=== PATIENT | female | born 1985 | race Caucasian/White ===

== ENCOUNTER 2021-02-10 02:17 | Emergency (ER) | payer OTHER ==
[2021-02-10] MEDS ORDERED: Bacitracin Oint 1 GM U/D Packet TOP ONE (03:01)
--- NOTE | 2021-02-10 03:07 | EDM.PDOC ---
ED HPI GENERAL MEDICAL PROBLEM - General Chief Complaint: Laceration Stated Complaint: HEAD LACERATION Time Seen by Provider: 02/10/21 02:50 Source of Information: Reports: Patient History Limitations: Reports: No Limitations - History of Present Illness INITIAL COMMENTS - FREE TEXT/NARRATIVE: Patient was trying to center a cab on a table before lowering it when she accidentally hit the lower button and the cab dropped down. Made contact with the top of her head. Has abrasion/headache. No loss of consciousness. No neuro focal neuro changes. No vomiting/nausea. No other complaints. Treatments CARETAKER RESORT: Reports: Cold Therapy Headache Pain Score (Numeric/FACES): 7 - Related Data Allergies Allergy/AdvReac Type Severity Reaction Status Date / Time adhesive tape Allergy Rash Verified 02/10/21 02:24 NSAIDS (Non-Steroidal Allergy Anaphylactic Verified 02/10/21 02:24 Anti-Inflamma Shock Home Meds: Home Meds Levothyroxine Sodium [Levothyroxine] 125 mcg PO DAILY 02/10/21 [History] Topiramate 100 mg PO BID 02/10/21 [History] Past Medical History HEENT History: Reports: Impaired Vision REFINISHER History: Reports: Musculoskeletal History: Reports: Fibromyalgia Neurological History: Reports: Migraines Psychiatric History: Reports: Anxiety, Depression, PTSD Endocrine/Metabolic History: Reports: Other (See Below) Other Endocrine/Metabolic History: Bobo's - Past Surgical History HEENT Surgical History: Reports: Adenoidectomy, Myringotomy w Tube(s), Tonsillectomy Endocrine Surgical History: Reports: None Neurological Surgical History: Reports: None Musculoskeletal Surgical History: Reports: None Social & Family History - Tobacco Use Tobacco Use Status *Q: Light Tobacco User Years of Tobacco use: 5 Packs/Tins Daily: 0.1 - Caffeine Use Caffeine Use: Reports: Coffee, Soda - Recreational Drug Use Recreational Drug Use: No ED ROS GENERAL - Review of Systems Review Of Systems: Comprehensive ROS is negative, except as noted in HPI. ED EXAM, SKIN/RASH Exam: See Below Exam Limited By: No Limitations General Appearance: Alert, WD/WN, No Apparent Distress Eye Exam: Bilateral Eye: EOMI, PERRL Ears: Normal Canal Nose: No: Nasal Deformity, Nasal Swelling, Nasal Drainage Throat/Mouth: Normal Lips, Normal Voice, No Airway Compromise Head: Other (abrasion/mild swelling on top of head) Neck: Normal Inspection, Supple, Non-Tender, Full Range of Motion. No: Tender Lateral, Tender Midline Respiratory/Chest: No Respiratory Distress, Lungs Clear, Normal Breath Sounds, No Accessory Muscle Use Cardiovascular: Regular Rate, Rhythm, No Murmur GI/Abdominal: Soft, Non-Tender (Female) Exam: Deferred Rectal (Female) Exam: Deferred Back Exam: Normal Inspection Extremities: Normal Inspection, Normal Range of Motion, Normal Capillary Refill Neurological: Alert, Oriented, CN II-XII Intact, Normal Cognition, Normal Gait, No Motor/Sensory Deficits Psychiatric: Normal Affect, Normal Mood Skin: Warm, Other (2.5cm abrasion on top of the scalp) Course - Vital Signs Last Recorded V/S: Last Vital Signs Temp 36.8 C 02/10/21 02:21 Pulse 58 L 02/10/21 02:21 Resp 14 02/10/21 02:21 BP 133/73 02/10/21 02:21 Pulse Ox 99 02/10/21 02:21 - Orders/Labs/Meds Orders: Active Orders 24 hr Category Date Time Status Bacitracin [Bacitracin Oint 1 GM] Med 02/10/21 03:01 Once 1 dose TOP ONETIME ONE - Re-Assessments/Exams Free Text/Narrative Re-Assessment/Exam: 02/10/21 03:08 No loc/no neuro changes. No indication for head CT at this time. Abrasion will be cleansed and have antibiotic ointment applied. Precautions reviewed. To follow up as needed PRN sudden problems/neuro changes/signs of worsening concussion. Given one shift off. Needs recheck if further restrictions are needed. Departure - Departure Time of Disposition: 03:25 Disposition: Home, Self-Care 01 Condition: Good Clinical Impression: Abrasion of scalp, initial encounter Contusion of head Qualifiers: Encounter type: initial encounter Contusion of head detail: scalp Qualified Code(s): S00.03XA - Contusion of scalp, initial encounter - Discharge Information *PRESCRIPTION DRUG MONITORING PROGRAM REVIEWED*: Not Applicable *COPY OF PRESCRIPTION DRUG MONITORING REPORT IN PATIENT [place]: Not Applicable Instructions: Facial or Scalp Contusion, [id number], Head Injury, Adult, [id number] Additional Instructions: No work rest of tonight's shift and tomorrow. May return after that if you are doing well. If you feel you need further restrictions then follow up Sunday for recheck. Ice/Tylenol/Tramadol for pain. Return to ER if you have signs of worsening head injury (concussion) or have other acute problems. Sepsis Event Note (ED) - Evaluation Sepsis Screening Result: No Definite Risk - Focused Exam Vital Signs: Vital Signs Temp Pulse Resp BP Pulse Ox 02/10/21 02:21 36.8 C 58 L 14 133/73 99 - My Orders Last 24 Hours: My Active Orders 02/10/21 03:01 Bacitracin [Bacitracin Oint 1 GM] 1 dose TOP ONETIME ONE - Assessment/Plan Last 24 Hours: My Active Orders 02/10/21 03:01 Bacitracin [Bacitracin Oint 1 GM] 1 dose TOP ONETIME ONE
== END 2021-02-10 03:24 | disposition home or self-care (01) ==
LOC: LL.ED 02:17
DX: S00.03XA Contusion of scalp, initial encounter (principal); Z91.048 Other nonmedicinal substance allergy status; Z88.8 Allergy status to other drugs, medicaments and biological substances; Z79.899 Other long term (current) drug therapy; Z72.0 Tobacco use; W22.09XA Striking against other stationary object, initial encounter
CPT/HCPCS: 99283

== ENCOUNTER 2021-07-04 15:46 | Emergency (ER) | payer BC ==
[2021-07-04] MEDS ORDERED: Promethazine 25 MG/ML SDV IM ONE (15:54)
[2021-07-04] MEDS ORDERED: Ondansetron 4 MG/2 ML SDV IVPUSH ONE (15:55)
[2021-07-04] MEDS ORDERED: Sodium Chloride 0.9% 10 ML Syringe FLUSH PRN (15:55)
[2021-07-04] MEDS ORDERED: Sodium Chloride 0.9% 1,000 ML IV ONE ×2 (15:55→17:15)
[2021-07-04 16:49] LABS: CHLORIDE,CL 109 mmol/L (98-107); SODIUM,NA 143 mmol/L (136-145)
[2021-07-04] MEDS ORDERED: Loperamide 2 MG Tab PO ONE (17:15)
[2021-07-04] MEDS ORDERED: diphenhydrAMINE 50 MG/ML SDV IVPUSH ONE (17:15)
[2021-07-04] MEDS ORDERED: HYDROmorphone 0.5 MG/0.5 ML Syringe IVPUSH ONE (17:15)
[2021-07-04 17:33] LABS: ANION GAP 17.1 meq/L (7-15)
== END 2021-07-04 20:55 | disposition home or self-care (01) ==
LOC: LL.ED 15:46
DX: K52.9 Noninfective gastroenteritis and colitis, unspecified (principal); Z91.048 Other nonmedicinal substance allergy status; Z88.8 Allergy status to other drugs, medicaments and biological substances; Z79.899 Other long term (current) drug therapy; Z20.822 Contact with and (suspected) exposure to COVID-19
CPT/HCPCS: 36415; 74019; 80053; 81001; 81025; 83735; 85025; 87426; 96372; 96374; 96375; 99284; A9270; J1170; J1200; J2405; J2550; J7030

== ENCOUNTER 2024-01-25 17:23 | Emergency (ER) | payer BC, OTHER ==
[2024-01-25] MEDS: traMADol 50 MG Tab PO ONE (18:00)
[2024-01-25] MEDS ORDERED: Take Home: oxyCODONE HCl 5 MG Tab, 5 Tab Pack ONE (19:05)
[2024-01-25] MEDS: Take Home: predniSONE 20 MG, 4 Tab Pack PO ONE (19:06)
[2024-01-25] MEDS: Take Home: oxyCODONE HCl 5 MG Tab, 5 Tab Pack PO ONE (19:11)
== END 2024-01-25 19:20 | disposition home or self-care (01) ==
LOC: LL.ED 17:23
DX: S29.9XXA Unspecified injury of thorax, initial encounter (principal); Z79.899 Other long term (current) drug therapy; Z88.8 Allergy status to other drugs, medicaments and biological substances; Z91.048 Other nonmedicinal substance allergy status; X50.0XXA Overexertion from strenuous movement or load, initial encounter
CPT/HCPCS: 71101-LT; 99283; A9270-GY